=== PATIENT | male | born 1955 | race Caucasian/White ===

== ENCOUNTER → 2017-03-02 | Outpatient (CLI) | payer OTHER ==
[~2017-03-02] VITALS: Ht 172.7 cm; Wt 84.5 kg
[~2017-03-02] MED LIST: ALLER-EASE180 MG PO; CANDESARTAN-HC1 EAC1 PO; FISH OIL 1,4001 EACH PO; GNP GLUCOSAMIN PO; LUTEIN-ZEAXANT1 EACH PO; MOBIC15 MG PO; OMEPRAZOLE 20 M20 M1 PO; UNICOMPLEX M TA1 TA1 PO
--- NOTE | ~2017-03-02 | HPC ---
[facility] [place] [address] PAIN MANAGEMENT CONSULTATION Name: CINDY LEONARD Shelly Room #: REG NAKUL Jordon.#: [id number] Admission: 03/02/17 Attend Phys: Tyson Choe MD Discharge: Date of : 59 Report #: [id number] THIS REPORT FOR: //name// CC: BÁRBARA Choe DATE OF SERVICE: 03/02/2017 Followup visit for lumbar radiculopathy. The patient returns to the pain clinic today for epidural steroid injection. He had a really outstanding response to his previous injection performed in 2009. I last saw him on 01/19/2017 and we had to get a preauthorization ____ and he has had to return. Nothing is changed since his last visit. He has low back pain with radiculopathy following an L4-L5, L5-S1 distribution. With his previous excellent response we both agreed and so is the insurance company that we can proceed with an epidural steroid injection under fluoroscopic guidance. MEDICATIONS: Reviewed and unchanged. ALLERGIES: Reviewed. PHYSICAL EXAMINATION: Re-performed without change. IMPRESSION: Lumbar radiculopathy, L4-L5 and L5-S1. PROCEDURE: Epidural steroid injection under fluoroscopic guidance. The patient was taken to fluoroscopic suite, placed prone, skin prepped with ChloraPrep. Skin was anesthetized over the L4-L5 interspace. A 20-gauge Tuohy epidural needle advanced in the epidural space with loss of resistance. No blood or CSF aspirated. 1 mL of Omnipaque injected. Good spread of dye observed in the epidural space followed by 3 mL of 0.5% lidocaine. He tolerated the procedure well and was observed in recovery room for 45 minutes and discharged. Follow up as needed. By: [id number] Tyson Choe MD /nt
[2017-03-02 13:42] VITALS: BP 130/95
== END | disposition home or self-care (01) ==
LOC: PAIN 07:14
DX: M54.16 Radiculopathy, lumbar region (principal)

== ENCOUNTER → 2017-04-13 | Outpatient (CLI) | payer OTHER ==
[~2017-04-13] VITALS: Ht 172.7 cm; Wt 83.3 kg
[~2017-04-13] MED LIST changes: +DICLOFENAC SODI75 MG PO
--- NOTE | ~2017-04-13 | HPC ---
[facility] [address] [place] [address] PAIN MANAGEMENT CONSULTATION Name: CINDY LEONARD I Room #: REG NAKUL Jordon.#: [id number] Admission: 04/13/17 Attend Phys: Tyson Choe MD Discharge: Date of : 59 Report #: [id number] THIS REPORT FOR: //name// CC: Martir Choe DATE OF SERVICE: 04/13/2017 SUBJECTIVE: Followup visit for lumbar radiculopathy. The patient had an injection in February. It was about 6 weeks ago and he received over 50% improvement. He was sent to physical therapy for evaluation and treatment. He continues to walk aggressively up to 8,000-10,000 steps a day, but has some persistent pain. It is 0 when sitting, can be as high as a 9 when standing. It is aching, stabbing, radiating from the back into the right iliac crest and follows an upper dermatomal distribution. He would like to have another injection 2 weeks away from his trip to [place] with hopes that he will be able to enjoy his trip. His only pain medication at this time is meloxicam. He is avoiding opioids. PHYSICAL EXAMINATION: VITAL SIGNS: Positive for blood pressure of 130/95, heart rate 100, BMI is 28.3. MUSCULOSKELETAL: He has good full range of motion of the lumbar spine. Local tenderness in the iliac crest region. Straight leg raising is mildly positive with reproduction of pain in the upper back and the hip. Pain is all on the right. IMPRESSION: Low back pain with radiculopathy with excellent response to initial injection over 1 month ago. Would like to have another injection before his vacation, I think this is very appropriate. Would like to avoid the use of stronger pain medication including opioids. We will ask [employer] to preauthorize an injection and I will bring him back in the pain clinic in 3 days. He is an excellent candidate. <ELECTRONICALLY SIGNED> By: Tyson Choe MD 05/13/17 1640 [id number] Tyson Choe MD /nt
[2017-04-13 14:01] VITALS: BP 133/87
== END ==
LOC: PAIN 07:06
DX: M54.16 Radiculopathy, lumbar region (principal)

== ENCOUNTER → 2017-04-20 | Outpatient (CLI) | payer OTHER ==
[~2017-04-20] VITALS: Ht 172.7 cm; Wt 84.4 kg
--- NOTE | ~2017-04-20 | CRIT ---
[facility] [place] [address] [place] [address] CRITICAL CARE NOTE Name: CINDY LEONARD I Room #: REG NAKUL Jordon.#: [id number] Admission: 04/20/17 Attend Phys: Tyson Choe MD Discharge: Date of : 59 Report #: [id number] THIS REPORT FOR: //name// CC: Martir Choe DATE OF SERVICE: 04/20/2017 Followup visit for lumbar radiculopathy. The patient was seen on 04/13/2017. He has ____ insurance and we were unable to perform the necessary lumbar epidural steroid injection on 04/13/2017. We sought preauthorization which was granted and we are going to proceed today with the injection detailed on 04/13/2017. He is leaving in 1 week for [place] and is anxious to get some relief before his trip. He has found outstanding relief with his first injection. Pain is now returning somewhat. Please see dictation from 04/13/2017 for details. PHYSICAL EXAMINATION: VITAL SIGNS: Stable. Blood pressure 144/96, heart rate is 99. MUSCULOSKELETAL: He has an antalgic gait. Positive straight leg raising on the right consistent with lumbar radiculopathy. IMPRESSION: Lumbar radiculopathy on the right L5 distribution. PROCEDURE: Lumbar epidural steroid injection under fluoroscopic guidance. He was taken to the fluoroscopic suite, placed prone, skin prepped with ChloraPrep. Skin anesthetized over L4-L5 to the right of midline. A skin wheal was made and a 20-gauge Tuohy epidural needle advanced in the epidural space using loss of resistance technique. No blood nor CSF was aspirated. A mL of Omnipaque demonstrated excellent spread along the right lateral recess and it was followed by 3 mL of 0.5% lidocaine mixed with 80 mg of triamcinolone. He tolerated the procedure very well, was observed for 45 minutes and discharged with a followup visit scheduled on an as needed basis for further injections. <ELECTRONICALLY SIGNED> By: Tyson Choe MD 05/13/17 1640 [id number] Tyson Choe MD /nt
[2017-04-20 09:48] VITALS: BP 144/96
== END | disposition home or self-care (01) ==
LOC: PAIN 06:52
DX: M54.16 Radiculopathy, lumbar region (principal); Z79.899 Other long term (current) drug therapy

== ENCOUNTER → 2017-10-01 | Outpatient (CLI) | payer OTHER ==
[~2017-10-01] VITALS: Ht 172.7 cm; Wt 85.5 kg
--- NOTE | ~2017-10-01 | HPC ---
[facility] [place] [address] PAIN MANAGEMENT CONSULTATION Name: CINDY LEONARD I Room #: REG NAKUL Jordon.#: [id number] Admission: 10/01/17 Attend Phys: Tyson Choe MD Discharge: Date of : 59 Report #: [id number] THIS REPORT FOR: //name// CC: Martir Choe DATE OF SERVICE: 10/01/2017 Followup visit for chronic and recurring lumbar radiculopathy. The patient is a patient who responds beautifully to epidural injections. His last injection was performed on 04/20/2017. He would like to repeat an epidural injection. Reports to me that he had months of almost 100% pain relief. His pain relief is extending into the 4-5 month range and now is returning. He says that the pain is worse after prolonged sitting. He describes it as stabbing that radiates into his left calf, into his knee. Pain today is 1 when he is moving but after prolonged sitting, it goes to an 8/10. MEDICATIONS: Reviewed and reconciled from the electronic medical record. He is on no blood thinners. ALLERGIES: OPIOIDS, PARTICULARLY OXYCODONE. PHYSICAL EXAMINATION: VITAL SIGNS: Blood pressure 152/94, heart rate 89, respirations 14. MUSCULOSKELETAL: He has an antalgic gait, which is moderate. He has positive straight leg raising on the right consistent with lumbar radiculopathy noted in the L4-L5 distribution. IMPRESSION: Lumbar radiculopathy, L4-L5 on the right. RECOMMENDATIONS: Epidural steroid injection under fluoroscopic guidance. Unfortunately, we were unable to proceed with this excellent treatment for his condition. We will wait for preauthorization from his insurance company and bring him back to the clinic at that time for an injection. Again, it should be noted that he gets 100% pain relief for nearly 3-4 months after these injections. By: [id number] Tyson Choe MD /nt
[2017-10-01 10:50] VITALS: BP 122/94
== END ==
LOC: PAIN 06:11
DX: M54.16 Radiculopathy, lumbar region (principal); G89.29 Other chronic pain

== ENCOUNTER → 2017-10-12 | Outpatient (CLI) | payer OTHER ==
[~2017-10-12] VITALS: Ht 172.7 cm; Wt 85.6 kg
--- NOTE | ~2017-10-12 | HPC ---
[facility] [place] [address] PAIN MANAGEMENT CONSULTATION Name: CINDY LEONARD Shelly Room #: REG BETSYShelly Ruvalcaba.#: [id number] Admission: 10/12/17 Attend Phys: Tyson Choe MD Discharge: Date of : 59 Report #: [id number] THIS REPORT FOR: //name// CC: Martir Choe DATE OF SERVICE: 10/12/2017 Followup visit for lumbar radiculopathy. The patient returns to pain clinic today for his epidural. Previous injections have been helpful. He scores pain today on presentation as 8 after sitting. He would like to proceed with the injection. I reviewed his notes from his most recent visit on 10/01/2017. There have been no changes. He asked about an MRI. He has not ever had an MRI of his lumbar spine. This is his third episode of lumbar radicular pain. I have recommended that we go ahead and get an MRI ordered today that he can evaluate after his epidural. Hopefully, no further intervention will be required, but at least to know what he is dealing with. IMPRESSION: Lumbar radiculopathy, right L4-L5 distribution. PROCEDURE: Epidural steroid injection under fluoroscopic guidance. He was taken to fluoroscopic suite for treatment, placed prone, skin prepped with ChloraPrep. Skin anesthetized over L4-L5 and a 20-gauge Tuohy epidural needle advanced in first attempt into the epidural space with loss of resistance technique. There was no blood or CSF aspirated. 1 mL of Omnipaque was injected. Good spread of dye observed in the epidural space followed by 3 mL of 0.5% lidocaine mixed with 80 mg of triamcinolone. He tolerated the procedure well and was observed for 45 minutes and discharged. Follow up as needed. By: [id number] Tyson Choe MD /nt
[2017-10-12 12:52] VITALS: BP 144/96
== END | disposition home or self-care (01) ==
LOC: PAIN 06:05
DX: M54.16 Radiculopathy, lumbar region (principal); G89.29 Other chronic pain; Z98.890 Other specified postprocedural states; Z88.8 Allergy status to other drugs, medicaments and biological substances; Z79.899 Other long term (current) drug therapy